=== PATIENT | female | born 1955 | race Caucasian/White ===

== ENCOUNTER 2018-05-05 21:10 | Emergency (ER) | payer BC, OTHER ==
[2018-05-05] MEDS: ACETAMINOPHEN 325 MG TAB PO (23:01)
== END 2018-05-06 01:35 | disposition home or self-care (01) ==
LOC: FTE 05-06 01:35
DX: S82.892A Other fracture of left lower leg, initial encounter for closed fracture (principal); I10 Essential (primary) hypertension; E11.9 Type 2 diabetes mellitus without complications; X58.XXXA Exposure to other specified factors, initial encounter; Y92.9 Unspecified place or not applicable; Z79.84 Long term (current) use of oral hypoglycemic drugs
CPT/HCPCS: 73610; 99283-25